=== PATIENT | female | born 1985 | race Caucasian/White ===

== ENCOUNTER 2024-11-04 06:28 | Inpatient (IN) ==
[~2024-11-04 06:28] MED LIST: KETAMINE HCL ONE; ULTANE GAS IN ONE; VENTOLIN or PROAIR HFA ONE
[2024-11-04] MEDS: FENTANYL VIAL INJ 100 mcg ONE (06:37)
[2024-11-04] MEDS: VERSED ONE (06:37)
[2024-11-04] MEDS: REGLAN INJ 10 MG VIAL ONE (06:38)
[2024-11-04] MEDS: ZEMURON 100 MG VIAL ONE (06:38)
[2024-11-04] MEDS: TORADOL 30 MG VIAL ONE (06:38)
[2024-11-04] MEDS: DIPRIVAN VIAL 20 ML ONE (06:38)
[2024-11-04] MEDS: BRIDION ONE (06:38)
[2024-11-04] MEDS: ZOFRAN INJ 4 MG VIAL ONE (06:38)
[2024-11-04] MEDS: OFIRMEV IV 1000 MG VIAL 1,000 MG/100 ML VIAL IV ONE (06:38)
[2024-11-04] MEDS: XYLOCAINE 2 % (PLAIN) ONE (06:40)
[2024-11-04] MEDS: ANCEF VIAL 1 GRAM ONE (06:44)
[2024-11-04] MEDS: LR IV PRN (06:45)
[2024-11-04] MEDS: PRECEDEX INJ VIAL ONE (06:49)
[2024-11-04] MEDS: PEPCID 20 MG VIAL ONE (06:51)
[2024-11-04] MEDS: ZOFRAN INJ 4 MG VIAL IVP PRN ×3 (07:00→15:58)
[2024-11-04] MEDS: PEPCID 20 MG VIAL IVP PRN (07:00)
[2024-11-04] MEDS: REGLAN INJ 10 MG VIAL IVP PRN (07:00)
[2024-11-04] MEDS: NS 100 ML IV 100 ML ONE (07:07)
[2024-11-04] MEDS: ANCEF VIAL 1 GRAM IVP ONE (07:07)
[2024-11-04] MEDS: LR 1,000 ML IV 1,000 ML IV ONE ×2 (07:07→08:56)
[2024-11-04] MEDS: LR 1,000 ML IV 1,000 ML IV SCH (07:12)
[2024-11-04] MEDS: VERSED IVP PRN (07:14)
[2024-11-04] MEDS: ANCEF VIAL 1 GRAM IV PRN (07:15)
[2024-11-04] MEDS: BETADINE SOLN ONE (07:16)
[2024-11-04 07:22] VITALS: BMI 43.0
[2024-11-04] MEDS ORDERED: XYLOCAINE 2 % (PLAIN) PRN (07:22)
[2024-11-04] MEDS: FENTANYL VIAL INJ 100 mcg IVP PRN (07:23)
[2024-11-04] MEDS: DIPRIVAN VIAL 180 ML IVP PRN (07:23)
[2024-11-04] MEDS: PRECEDEX INJ VIAL IVP PRN (07:29)
[2024-11-04] MEDS: EPHEDRINE SULFATE INJ ONE (07:33)
[2024-11-04] MEDS: KETAMINE HCL IV PRN (07:37)
[2024-11-04] MEDS: ProvayBLUE 0.5% ONE (07:37)
[2024-11-04] MEDS: ROBINUL ONE (07:52)
[2024-11-04] MEDS: ROBINUL IVP PRN (07:54)
[2024-11-04] MEDS ORDERED: DANTRIUM PRN (08:01)
[2024-11-04] MEDS ORDERED: BENADRYL INJ 50 MG VIAL IVP PRN ×2 (08:22→09:58)
[2024-11-04] MEDS ORDERED: BARHEMSYS INJ IVP PRN (08:22)
[2024-11-04] MEDS: EPHEDRINE SULFATE INJ IVP PRN (08:55)
[2024-11-04] MEDS: TORADOL 30 MG VIAL IVP PRN ×2 (08:57→19:33)
[2024-11-04] MEDS: ZEMURON 100 MG VIAL IVP PRN (09:11)
[2024-11-04] MEDS: OFIRMEV IV 1000 MG VIAL 1,000 MG/100 ML VIAL IV PRN (09:19)
[2024-11-04] MEDS: BRIDION IVP PRN (09:29)
[2024-11-04] MEDS: DILAUDID INJ IVP PRN (09:44)
[2024-11-04] MEDS ORDERED: NARCAN INJ IVP PRN (09:58)
[2024-11-04] MEDS: D5 1/2 NS 1,000 ML 1,000 ML IV SCH (10:31)
[2024-11-04] MEDS: MORPHINE SULFATE PCA 30 MG IVP PRN (10:44)
[2024-11-04] MEDS: DILAUDID INJ ONE (16:58)
[2024-11-04] MEDS: PHENERGAN INJ 25 MG IM PRN (19:33)
[2024-11-05 04:56] LABS: MEAN PLATELET VOLUME 8.2 fL (7.4-11.0); RED CELL DISTRIBUTION WIDTH 14.6 % (11.6-16.5)
[2024-11-05 05:08] LABS: COR NA(FOR HYPERGLY) 141 mmol/L (136-145); CREATININE 0.58 mg/dL (0.55-1.02); eGFR NON BLACK RACES > 60 (>60)
[2024-11-05] MEDS ORDERED: ALPRAZOLAM ODT PO PRN (07:35)
[2024-11-05] MEDS: MOTRIN TAB 800 MG PO PRN (08:38)
[2024-11-05] MEDS: LOTENSIN TAB 10 MG PO SCH (08:41)
[2024-11-05] MEDS: COLACE CAP 100 MG PO SCH (08:41)
[2024-11-05] MEDS: CLARITIN PO SCH (08:42)
[2024-11-05] MEDS: PERCOCET TAB 5/325 MG PO PRN (14:25)
[2024-11-05] MEDS: BACTROBAN TOPICAL OINT TOP SCH (14:26)
[2024-11-05] MEDS: ZANAFLEX PO SCH (20:22)
[2024-11-06 01:57] VITALS: RESP 18
[2024-11-06 05:41] VITALS: BP 119/82; PULSE 75; TEMP 98.2; O2SAT 97
[2024-11-06] MEDS: ESTRACE PO SCH (08:12)
== END 2024-11-06 08:40 | disposition home or self-care (01) | DRG 743 ==
LOC: MED/SURG 06:28
PROVIDERS: ADMIT Specialist; ATTEND Specialist
DX: N94.6 Dysmenorrhea, unspecified; I10 Essential (primary) hypertension; N92.0 Excessive and frequent menstruation with regular cycle